=== PATIENT | female | born 1995 | race Hispanic/Latino ===

== ENCOUNTER 2021-09-09 09:10 | Day surgery (SDC) | payer OTHER ==
[2021-09-09] MEDS ORDERED: hydrALAZINE 20 MG/ML VIAL SLOW IVP PRN (09:29)
[2021-09-09 10:56] LABS: Bilirubin Neg (Negative); Blood, Urine 10 (Negative); Clarity Slightly Cloudy (Clear); Glucose, Urine (Dipstick) Normal (Negative); Ketone, Urine Negative (Negative); Leukocyte 500 (Negative); Nitrite Negative (Negative); Protein, Urine (Dipstick) 15 mg/dl (Neg-Trace); Urobilinogen Normal mg/dL (Less than 2); pH, Urine 6.5 (5.0-9.0)
[2021-09-09 10:57] VITALS: BMI 35.3
[2021-09-09 11:03] LABS: Urine Culture Reflex No No
[2021-09-09 11:06] LABS: Fetal Membranes Rupture No Membranes Rupture (No Rupture)
[2021-09-09 11:14] LABS: RBC/HPF 0-3 HPF (0-3); Squamous Epithelial 0-3 HPF (0-3)
[2021-09-09 11:15] LABS: Bacteria/HPF 2+ HPF (None Seen)
== END 2021-09-09 12:15 | disposition home health service, planned readmission (86) ==
LOC: CSHLD/OP 09:10
PROVIDERS: ATTEND Obstetrics & Gynecology
DX: O23.592 Infection of other part of genital tract in pregnancy, second trimester (principal); O98.812 Other maternal infectious and parasitic diseases complicating pregnancy, second trimester; B37.3 Candidiasis of vulva and vagina; Z3A.26 26 weeks gestation of pregnancy
CPT/HCPCS: 81001; 84112; 87086; 87480; 87510; 87660; 99285

== ENCOUNTER 2021-11-18 00:31 | Day surgery (SDC) | payer OTHER ==
[2021-11-18 01:03] VITALS: BMI 38.7
[2021-11-18] MEDS ORDERED: hydrALAZINE 20 MG/ML VIAL SLOW IVP PRN (02:28)
== END 2021-11-18 02:30 | disposition home or self-care (01) ==
LOC: CSHLD/OP 00:31
PROVIDERS: ATTEND Family Medicine
DX: O47.03 False labor before 37 completed weeks of gestation, third trimester (principal); Z3A.36 36 weeks gestation of pregnancy
CPT/HCPCS: 99282

== ENCOUNTER 2021-11-20 20:11 | Emergency (ER) | payer OTHER ==
[2021-11-20 21:21] LABS: #Monocytes 0.5 10x3/uL (0.0-1.1); #Neutrophils 4.4 10x3/uL (1.5-8.4); %Basophils 0.3 % (0.0-2.0); %Eosinophils 0.7 % (0.0-6.0); %Lymphocytes 14.4 % (18.0-47.0); %Monocytes 7.7 % (0.0-10.0); %Neutrophils 76.2 % (40.0-75.0); Hemoglobin 10.3 g/dL (12.0-15.5); Mean Corpuscular HGB CONC 33.7 g/dL (32.0-36.0); Mean Corpuscular Hemoglobin 28.1 pg (27.0-33.0); Mean Corpuscular Volume 83.4 fl (81.6-98.3); Mean Platelet Volume 11.8 fl (7.4-10.4); Platelet Count 146 10x3/uL (150-450); RBC Distribution Width 13.5 % (11.5-14.5); Red Blood Cell (RBC) Count 3.67 10x6/uL (3.90-5.03); White Blood Cell (WBC) Count 5.8 10x3/uL (3.5-10.5)
[2021-11-20 21:35] LABS: ALT (SGPT) 16 U/L (8-55); AST (SGOT) 16 U/L (5-34); Albumin 3.2 g/dL (3.5-5.0); Alkaline Phosphatase 145 U/L (40-110); Anion Gap 14 mmol/L (10-20); BUN (Urea Nitrogen) 6 mg/dL (7.0-18.7); Bilirubin, Total 0.5 mg/dL (0.2-1.2); Calc. Creatinine Clearance 0 mL/min (70-130); Calcium 8.8 mg/dL (7.8-10.44); Carbon Dioxide 19 mmol/L (22-29); Chloride 105 mmol/L (98-107); Estimated GFR 124; Globulin 3.2 g/dL (2.4-3.5); Glucose 124 mg/dL (70-105); Potassium 3.7 mmol/L (3.5-5.1); Protein, Total 6.4 g/dL (6.0-8.3); Sodium 134 mmol/L (136-145)
[2021-11-20 22:02] LABS: SARS-CoV-2 NAA Rapid Test Not Detected (NotDetected)
[2021-11-20 23:46] LABS: Bilirubin Neg (Negative); Blood, Urine Negative (Negative); Clarity Clear (Clear); Glucose, Urine (Dipstick) Normal (Negative); Ketone, Urine 5 mg/dL (Negative); Leukocyte 500 (Negative); Nitrite Negative (Negative); Protein, Urine (Dipstick) 30 mg/dl (Neg-Trace); Specific Gravity, Urine 1.015 (1.002-1.036); pH, Urine 6.5 (5.0-9.0)
[2021-11-21 00:24] LABS: Bacteria/HPF 2+ HPF (None Seen); RBC/HPF 0-3 HPF (0-3); Squamous Epithelial 0-3 HPF (0-3); Yeast-Hyphae 2+ HPF (None Seen)
== END 2021-11-21 01:33 | disposition home or self-care (01) ==
LOC: CSHERS 20:11
DX: O98.513 Other viral diseases complicating pregnancy, third trimester (principal); B34.9 Viral infection, unspecified; Z20.822 Contact with and (suspected) exposure to COVID-19; Z3A.37 37 weeks gestation of pregnancy
CPT/HCPCS: 80053; 81003; 81015; 85025; 96361; 96374; U0002

== ENCOUNTER 2021-12-09 09:40 | Outpatient (CLI) | payer OTHER | END 2021-12-09 09:41 | disposition home or self-care (01) | LOC: CSHLAB 09:40 | PROVIDERS: ATTEND Family Medicine | DX: Z20.822 Contact with and (suspected) exposure to COVID-19 (principal) | CPT/HCPCS: 87811 ==

== ENCOUNTER 2021-12-11 19:30 | Inpatient (IN) | payer OTHER ==
[2021-12-11 20:55] VITALS: BMI 38.7
[2021-12-11] MEDS ORDERED: Promethazine HCl 25 MG/ML VIAL IM PRN (22:10)
[2021-12-11] MEDS ORDERED: Acetaminophen 500 MG TAB PO PRN (22:10)
[2021-12-11] MEDS ORDERED: hydrALAZINE 20 MG/ML VIAL SLOW IVP PRN (22:10)
[2021-12-11] MEDS ORDERED: Ondansetron PF 4 MG/2 ML Vial IVP PRN (22:10)
[2021-12-11] MEDS ORDERED: Lidocaine 1% (PF) 30 ML VIAL SC PRN (22:10)
[2021-12-11] MEDS ORDERED: Ibuprofen 800 MG TAB PO PRN (22:12)
[2021-12-11] MEDS ORDERED: Methylergonovine 0.2 MG/ML VIAL IM PRN (22:12)
[2021-12-11] MEDS ORDERED: Diphenoxylate HCl/Atropine Tablet PO PRN (22:12)
[2021-12-11] MEDS ORDERED: HYDROcodone/Acetaminophen 5/325 mg Tablet PO PRN (22:12)
[2021-12-11] MEDS ORDERED: Carboprost 250 MCG/ML AMP IM PRN (22:12)
[2021-12-11] MEDS ORDERED: NS w/ Oxytocin 30 units 500 ML IV SCH ×2 (22:15)
[2021-12-11 22:23] LABS: Mean Corpuscular HGB CONC 33.2 g/dL (32.0-36.0); Mean Corpuscular Hemoglobin 27.2 pg (27.0-33.0); Mean Corpuscular Volume 81.9 fl (81.6-98.3); Mean Platelet Volume 12.4 fl (7.4-10.4); Platelet Count 183 10x3/uL (150-450); RBC Distribution Width 14.1 % (11.5-14.5); Red Blood Cell (RBC) Count 4.04 10x6/uL (3.90-5.03)
[2021-12-11] MEDS: Misoprostol 100 MCG TAB VAG SCH (22:48)
[2021-12-11 22:55] LABS: Syphilis Antibody Nonreactive (Nonreactive); Syphilis Antibody Index 0.03 S/CO (<1.00 Non-Reactive)
[2021-12-11 22:56] LABS: Hep B Surf Ag Non-Reactive S/CO (NonReactive)
[2021-12-12] MEDS ORDERED: Terbutaline Sulfate 1 MG/ML VIAL ONE (00:36)
[2021-12-12] MEDS ORDERED: Penicillin G Potassium 5 MILL.UNITS in Sodium Chloride 0.9% 100 ML IVPB SCH (01:00)
[2021-12-12] MEDS: Penicillin G 2.5 MILL.units 2.5 MILL.UNITS in Premix Bag 1 BAG IVPB SCH ×3 (05:02→18:44)
[2021-12-12] MEDS ORDERED: Bicitra 30 ML UDCUP PO PRN (07:27)
[2021-12-12] MEDS ORDERED: Famotidine/PF 20 mg/2ml Vial SLOW IVP PRN (07:27)
[2021-12-12] MEDS ORDERED: CEFAZOLIN 2 GM in Sodium Chloride 0.9% 100 ML IVPB SCH (07:30)
[2021-12-12] MEDS ORDERED: CEFAZOLIN 2 GM VIAL ONE (07:44)
[2021-12-12] MEDS ORDERED: Famotidine/PF 20 mg/2ml Vial ONE (07:44)
[2021-12-12] MEDS ORDERED: Naloxone HCl 0.4 mg/ml Vial IVP PRN ×2 (09:36)
[2021-12-12] MEDS ORDERED: Acetaminophen 325 MG TAB PO PRN (09:36)
[2021-12-12] MEDS ORDERED: Ondansetron PF 4 MG/2 ML Vial IVP PRN ×2 (09:36→13:50)
[2021-12-12] MEDS ORDERED: ePHEDrine Sulfate 50 MG/10 ML VIAL SLOW IVP PRN (09:36)
[2021-12-12] MEDS ORDERED: Moisturizing Cream (Eucerin) 113 GM JAR TOP PRN (09:36)
[2021-12-12] MEDS ORDERED: Promethazine HCl 25 MG/ML VIAL IM PRN ×2 (09:36→13:50)
[2021-12-12] MEDS ORDERED: Lactated Ringer's 500 ML IV PRN (09:36)
[2021-12-12] MEDS ORDERED: diphenhydrAMINE 50 MG/ML VIAL IVP PRN (09:36)
[2021-12-12] MEDS ORDERED: Morphine PF 10 MG/10 ML VIAL ONE (09:43)
[2021-12-12] MEDS ORDERED: Ketorolac Tromethamine 30 MG/ML VIAL ONE (09:43)
[2021-12-12] MEDS ORDERED: Phenylephrine 10 MG/ML VIAL ONE (09:43)
[2021-12-12] MEDS ORDERED: Oxytocin 10 UNITS/ML VIAL ONE ×2 (09:43→10:24)
[2021-12-12] MEDS ORDERED: Fentanyl 100 MCG/2 ML VIAL ONE (09:43)
[2021-12-12] MEDS ORDERED: Ondansetron PF 4 MG/2 ML Vial ONE (09:43)
[2021-12-12] MEDS ORDERED: Fentanyl 2 mcg/Bupivacaine 0.1% Cassette 100 ML EPIDURAL SCH (09:45)
[2021-12-12] MEDS ORDERED: Communication Order-Pharmacy FS SCH (09:45)
[2021-12-12] MEDS ORDERED: Dexamethasone 4 mg/ml Vial ONE ×2 (10:23→10:29)
[2021-12-12] MEDS: Lactated Ringer's 1,000 ML IV SCH (12:47)
[2021-12-12] MEDS: Misoprostol 100 MCG TAB VAG SCH (12:48)
[2021-12-12] MEDS ORDERED: HYDROcodone/Acetaminophen 5/325 mg Tablet PO PRN ×2 (13:50)
[2021-12-12] MEDS ORDERED: Bisacodyl 10 MG SUPP PR PRN (13:50)
[2021-12-12] MEDS ORDERED: hydrALAZINE 20 MG/ML VIAL SLOW IVP PRN (13:50)
[2021-12-12] MEDS ORDERED: Boostrix 0.5 ML (Tdap) VIAL (>/=7 yrs of age) IM ONE (13:50)
[2021-12-12] MEDS ORDERED: Meperidine HCl/PF 25 MG/ML VIAL IM PRN (13:50)
[2021-12-12] MEDS ORDERED: Lanolin Ointment 7 GM TUBE TOP PRN (13:50)
[2021-12-12] MEDS: Ibuprofen 800 MG TAB PO SCH (18:42)
[2021-12-12] MEDS: Ferrous Sulfate 325 MG TAB PO SCH (19:27)
[2021-12-12] MEDS: diphenhydrAMINE 25 MG CAP PO PRN (21:45)
[2021-12-13] MEDS: Ibuprofen 800 MG TAB PO SCH ×4 (04:53→23:44)
[2021-12-13] MEDS: diphenhydrAMINE 25 MG CAP PO PRN ×2 (04:57→08:42)
[2021-12-13 05:40] LABS: Hemoglobin 9.3 g/dL (12.0-15.5); Mean Corpuscular Hemoglobin 27.5 pg (27.0-33.0); Mean Corpuscular Volume 83.4 fl (81.6-98.3); Mean Platelet Volume 12.9 fl (7.4-10.4); Platelet Count 167 10x3/uL (150-450); RBC Distribution Width 14.1 % (11.5-14.5); Red Blood Cell (RBC) Count 3.38 10x6/uL (3.90-5.03); White Blood Cell (WBC) Count 11.6 10x3/uL (3.5-10.5)
[2021-12-13] MEDS ORDERED: HYDROcodone/Acetaminophen 5/325 mg Tablet PO PRN (07:18)
[2021-12-13] MEDS: Docusate 100 MG CAP PO SCH ×3 (07:36→22:14)
[2021-12-13] MEDS: Prenatal Vitamin 1 TAB PO SCH (08:42)
[2021-12-13] MEDS: Ferrous Sulfate 325 MG TAB PO SCH ×2 (08:42→22:14)
[2021-12-13] MEDS: Simethicone Chewable 80 MG TAB PO PRN (08:43)
[2021-12-13] MEDS: HYDROcodone/Acetaminophen 5/325 mg Tablet PO PRN ×3 (13:06→22:14)
[2021-12-14] MEDS: Ibuprofen 800 MG TAB PO SCH ×3 (05:38→21:26)
[2021-12-14] MEDS: Prenatal Vitamin 1 TAB PO SCH (08:36)
[2021-12-14] MEDS: Ferrous Sulfate 325 MG TAB PO SCH ×2 (08:36→21:25)
[2021-12-14] MEDS: Docusate 100 MG CAP PO SCH ×2 (08:36→21:26)
[2021-12-14] MEDS: HYDROcodone/Acetaminophen 5/325 mg Tablet PO PRN ×2 (08:39→21:24)
[2021-12-14] MEDS: Simethicone Chewable 80 MG TAB PO PRN (21:26)
[2021-12-15] MEDS: Ibuprofen 800 MG TAB PO SCH (04:48)
[2021-12-15] MEDS: HYDROcodone/Acetaminophen 5/325 mg Tablet PO PRN (04:49)
[2021-12-15 08:26] VITALS: BP 111/67; TEMP 97.9
[2021-12-15] MEDS: Docusate 100 MG CAP PO SCH (08:27)
[2021-12-15] MEDS: Ferrous Sulfate 325 MG TAB PO SCH (08:27)
[2021-12-15] MEDS: Prenatal Vitamin 1 TAB PO SCH (08:27)
== END 2021-12-15 16:20 | disposition home or self-care (01) | DRG 788 ==
LOC: CSHLD 20:00 → CSHPP 12-12 13:28
PROVIDERS: ADMIT Family Medicine; ATTEND Family Medicine
PROC: 10D00Z1 Extraction of Products of Conception, Low, Open Approach (ICD-10-PCS; principal; 2021-12-12)
DX: O76 Abnormality in fetal heart rate and rhythm complicating labor and delivery (principal); Z3A.40 40 weeks gestation of pregnancy; Z37.0 Single live birth
CPT/HCPCS: 36415; 51702; 85027; 86780; 86850; 86900; 86901; 87340; J1100; J1885; J2274; J2370; J2405; J2540; J2590; J3010; J3490